=== PATIENT | female | born 1975 | race Caucasian/White ===

== ENCOUNTER 2016-06-06 11:46 | Emergency (ER) | payer OTHER ==
[~2016-06-06] VITALS: Ht 167.6 cm; Wt 65.0 kg
[2016-06-06 11:57] VITALS: Ht 167.6 cm; Wt 65.0 kg
[2016-06-06] MEDS ORDERED: DIPHENHYDRAMINE 50 MG INJ IV STA (12:21)
[2016-06-06] MEDS ORDERED: METOCLOPRAMIDE 10 MG INJ IV STA (12:21)
[2016-06-06] MEDS ORDERED: HYDROmorphONE 1 MG/ML SYG IV STA ×2 (12:21→16:04)
[2016-06-06] MEDS ORDERED: SOD CHLORIDE 0.9% 1,000 ML IV STA (12:21)
[2016-06-06] MEDS ORDERED: VENL37.56 PO (12:51)
[2016-06-06] MEDS ORDERED: RIZA10TA24 PO (12:52)
--- NOTE | 2016-06-06 13:33 | RADRPT ---
PROCEDURE: CT head without Contrast CLINICAL INDICATION: Headache TECHNIQUE: Transaxial images were made through the head on a multi-slice scanner without intraveno us contrast. Coronal and sagittal images were subsequently reformatted. One or more of the following dose reduction techniques were used: - Automated exposure control. - Adjustment of the mA and/or kV according to patient size. - Use of iterative reconstruction technique. Radiation dose: CTDIvol = 44.99 mGy; DLP = 720.23 mGy-cm. COMPARISON: None FINDINGS: The calvarium appears intact. There is some fluid is seen within several of the left inferior masto id air cells compatible with acute mastoiditis. There is loss of the trabeculation between the air cells within the right inferior mastoid region with 1 large air containing cavity. The paranasal si nuses are well-aerated. The ventricles are normal in size and there is no midline shift. No intracranial bleed, mass, or extra-axial fluid collection is identified. There is good arana-white matter differentiation. IMPRESSION: 1. Loss of trabeculation within the right inferior mastoid air cells with 1 large air containing ca vity seen inferiorly. This may been a sequelae of previous surgery or infection. There is mild acu te left mastoiditis. 2. Otherwise, unremarkable noncontrast enhance CT scan of the head. Physician Oren Date Time Electronically viewed and signed by Physician Oren on 06/06/2016 13:32 /
[2016-06-06] MEDS ORDERED: VANCOMYCIN 1 GM (PMX) 250 ML IVPB STA (14:22)
[2016-06-06] MEDS ORDERED: CEFTRIAXONE 1 GM/50 ML (PMX) 50 ML IVPB STA (14:22)
[2016-06-06 14:58] LABS: ADD SCAN DIFF NO
[2016-06-06 15:04] LABS: BASOPHILS % 0.5 % (0.0-2.0); EOSINOPHILS % 0.7 % (0.0-7.0); HEMATOCRIT 35.9 % (37.0-47.0); HEMOGLOBIN 11.8 g/dl (12.0-16.0); LYMPHOCYTES # 1.1 10^3/ul (0.8-2.9); LYMPHOCYTES % 19.7 % (15.0-51.0); MEAN CORPUSCULAR HEMOGLOBIN 27.4 pg (29.0-33.0); MEAN CORPUSCULAR HGB CONC 32.9 g/dl (32.0-37.0); MEAN CORPUSCULAR VOLUME 83.3 fl (82.0-101.0); MEAN PLATELET VOLUME 10.6 fl (7.4-10.4); MONOCYTE # 0.3 10^3/ul (0.3-0.9); MONOCYTES % 5.1 % (0.0-11.0); NEUTROPHIL # 4.2 10^3/ul (1.6-7.5); NEUTROPHILS % 73.5 % (39.0-77.0); PLATELET COUNT 247 10^3/UL (140-415); RED BLOOD COUNT 4.31 10^6/ul (4.20-5.40); RED CELL DISTRIBUTION WIDTH 12.7 % (11.5-14.5); WHITE BLOOD COUNT 5.7 10^3/ul (4.8-10.8)
[2016-06-06 15:08] LABS: ALBUMIN 4.2 g/dl (3.3-4.9); POTASSIUM 3.8 mmol/L (3.5-5.1)
[2016-06-06 15:10] LABS: CREATININE 0.71 mg/dl (0.44-1.00)
[2016-06-06 15:11] LABS: BILIRUBIN,INDIRECT 0.3 mg/dl (0-1.1); BILIRUBIN,TOTAL 0.3 mg/dl (0.2-1.3); CALCIUM 9.4 mg/dl (8.4-10.2); TOTAL PROTEIN 7.3 g/dl (6.1-8.1)
[2016-06-06 15:15] LABS: ALBUMIN/GLOBULIN RATIO 1.35
[2016-06-06] MEDS ORDERED: ONDANSETRON 4 MG INJ IV STA (16:04)
[2016-06-06] MEDS ORDERED: ONDA4TAB14 PO (16:08)
[2016-06-06] MEDS ORDERED: AMOX1TAB10 PO (16:08)
[2016-06-06] MEDS ORDERED: HYDR-902 PO (16:08)
--- NOTE | 2016-06-06 16:13 | ERD ---
ER Documentation Chief Complaint Date/Time DATE: 06/06/16 TIME: 16:10 Chief Complaint HAS N/V AND DIZZINESS COMING FROM HOME HPI This is a 41-year-old female with a history of migraine headaches for years complains of a typical migraine headache where she has pain in the occipital region on the right side that is pounding and she has photophobia and phonophobia. She says this is exactly like prior migraines but she has nausea vomiting with this headache and she rarely has that. She has no ear pain no fever no stiff neck no neurological symptoms in the extremities no speech or visual change. She says this is exactly like prior migraine she has had for years ROS All systems reviewed and are negative except as per history of present illness. Medications Home Meds Active Scripts Ondansetron (Ondansetron Odt) 4 Mg Tab.rapdis, 4 MG PO Q6H Y for NAUSEA AND/OR VOMITING, #10 TAB Prov:JACKSON CLEMENTS DO 06/06/16 Hydrocodone/Acetaminophen (Chancellor 10-325 Tablet) 1 Each Tablet, 1 TAB PO Q6H Y for PAIN, #20 TAB Prov:JACKSON CLEMENTS DO 06/06/16 Amoxicillin/Potassium Clav (Amox-Clav 875-125 mg Tablet) 875-125 mg Tab, 1 TAB PO BID for 10 Days, #20 TAB Prov:JACKSON CLEMENTS DO 06/06/16 Reported Medications Rizatriptan Benzoate (Rizatriptan Benzoate) 10 Mg Tab.rapdis, 10 MG PO DAILY Y for MIGRAINE, TAB may repeat after 2 hours, MAX 30 mg/24 hour 06/06/16 Venlafaxine Hcl* (Effexor*) 37.5 Mg Tablet, 37.5 MG PO DAILY, TAB 06/06/16 Allergies Allergies: Coded Allergies: omeprazole (Verified Allergy, Mild, RASH, 06/06/16) PMhx/Soc Medical and Surgical Hx: pt denies Surgical Hx Hx Alcohol Use: No Hx Substance Use: No Hx Tobacco Use: No Smoking Status: Never smoker FmHx Family History: No coronary disease Physical Exam Vitals Vital Signs Date Time Temp Pulse Resp B/P Pulse Ox O2 Delivery O2 Flow Rate FiO2 06/06/16 12:50 81 18 127/90 99 Room Air 06/06/16 11:57 98.2 88 18 110/78 98 Physical Exam Const: Well-developed, well-nourished Head: Atraumatic, normocephalic Eyes: Normal Conjunctiva, PERRLA, EOMI, normal sclera, no nystagmus bilateral TMs are clear, no mastoid tenderness or erythema ENT: Normal External Ears, Nose and Mouth, moist mucus membranes. Neck: Full range of motion. No meningismus, no lymphadenopathy. Resp: Clear to auscultation bilaterally, no wheezing, rhonchi, rales Cardio: Regular rate and rhythm, no murmurs, S1 S2 present Abd: Soft, non tender x 4, non distended. Normal bowel sounds, no guarding or rebound, no pulsitile abdominal masses or bruits Skin: No petechiae or rashes, no ecchymosis , no maculopapular rash Back: No midline or flank tenderness Ext: No cyanosis, or edema, FROM x 4, normal inspection, neurovascularly intact x 4 Neur: Awake and alert, STR 5/5 x 4, sensation intact x 4, no focal findings, cerebellum intact Psych: Normal Mood and Affect Result Diagram: 06/06/16 1440 06/06/16 1440 Results 24 hrs Laboratory Tests Test 06/06/16 14:40 Alanine Aminotransferase (ALT/SGPT) 26IU/L Albumin 4.2g/dl Albumin/Globulin Ratio 1.35 Alkaline Phosphatase 64IU/L Anion Gap 16 Aspartate Amino Transf (AST/SGOT) 20IU/L Basophils # 0.010^3/ul Basophils % 0.5% Blood Urea Nitrogen 12mg/dl Calcium Level 9.4mg/dl Carbon Dioxide Level 26mmol/L Chloride Level 104mmol/L Creatinine 0.71mg/dl Direct Bilirubin 0.00mg/dl Eosinophils # 0.010^3/ul Eosinophils % 0.7% Globulin 3.10g/dl Glucose Level 81mg/dl Hematocrit 35.9% Hemoglobin 11.8g/dl Indirect Bilirubin 0.3mg/dl Lymphocytes # 1.110^3/ul Lymphocytes % 19.7% Mean Corpuscular Hemoglobin 27.4pg Mean Corpuscular Hemoglobin Concent 32.9g/dl Mean Corpuscular Volume 83.3fl Mean Platelet Volume 10.6fl Monocytes # 0.310^3/ul Monocytes % 5.1% Neutrophils # 4.210^3/ul Neutrophils % 73.5% Nucleated Red Blood Cells # 0.010^3/ul Nucleated Red Blood Cells % 0.0/100WBC Platelet Count 97168^3/UL Potassium Level 3.8mmol/L Red Blood Count 4.3110^6/ul Red Cell Distribution Width 12.7% Sodium Level 142mmol/L Total Bilirubin 0.3mg/dl Total Protein 7.3g/dl White Blood Count 5.710^3/ul Current Medications Medications (Trade) Dose Ordered Sig/Yonny Route PRN Reason Start Time Stop Time Status Last Admin Dose Admin Sodium Chloride (NS) 1,000 ml @ 1,000 mls/hr Q1H STAT IV 06/06/16 12:21 06/06/16 13:20 DC 06/06/16 12:43 Metoclopramide HCl (Reglan) 10 mg ONCE STAT IV 06/06/16 12:21 06/06/16 12:22 DC 06/06/16 12:42 Hydromorphone HCl (Dilaudid) 1 mg ONCE STAT IV 06/06/16 12:21 06/06/16 12:23 DC 06/06/16 12:43 Diphenhydramine HCl 25 mg 25 mg ONCE STAT IV 06/06/16 12:21 06/06/16 12:23 DC 06/06/16 12:42 Ceftriaxone Sodium 50 ml @ 100 mls/hr ONCE STAT IVPB 06/06/16 14:22 06/06/16 14:51 DC 06/06/16 14:45 Vancomycin HCl (Vancocin) 250 ml @ 125 mls/hr ONCE STAT IVPB 06/06/16 14:22 06/06/16 16:21 06/06/16 15:39 Hydromorphone HCl (Dilaudid) 1 mg ONCE STAT IV 06/06/16 16:04 06/06/16 16:05 DC Ondansetron HCl (Zofran Inj) 4 mg ONCE STAT IV 06/06/16 16:04 06/06/16 16:05 DC Procedures/MDM PROCEDURE: CT head without Contrast CLINICAL INDICATION: Headache TECHNIQUE: Transaxial images were made through the head on a multi-slice scanner without intravenous contrast. Coronal and sagittal images were subsequently reformatted. One or more of the following dose reduction techniques were used: - Automated exposure control. - Adjustment of the mA and/or kV according to patient size. - Use of iterative reconstruction technique. Radiation dose: CTDIvol = 44.99 mGy; DLP = 720.23 mGy-cm. COMPARISON: None FINDINGS: The calvarium appears intact. There is some fluid is seen within several of the left inferior mastoid air cells compatible with acute mastoiditis. There is loss of the trabeculation between the air cells within the right inferior mastoid region with 1 large air containing cavity. The paranasal sinuses are well-aerated. The ventricles are normal in size and there is no midline shift. No intracranial bleed, mass, or extra-axial fluid collection is identified. There is good arana-white matter differentiation. IMPRESSION: 1. Loss of trabeculation within the right inferior mastoid air cells with 1 large air containing cavity seen inferiorly. This may been a sequelae of previous surgery or infection. There is mild acute left mastoiditis. 2. Otherwise, unremarkable noncontrast enhance CT scan of the head. Physician Oren Date Time Electronically viewed and signed by Physician Oren on 06/06/2016 13:32 RH/ CC: JACKSON CLEMENTS DO Patient has no evidence of osteitis on CT scan. There is no evidence of erythema or tenderness of the mastoids. She says this is a typical migraine for her and we may just be picking up some early mastoiditis with that is been asymptomatic to this point. She did receive IV antibiotics here and her white blood count is normal. We will discharge her home on Augmentin and follow-up with ENT. She was given strict signs and symptoms for which to return Departure Diagnosis: Primary Impression: Mastoiditis of left side Additional Impression: Migraine headache Migraine type: unspecified Status migrainosus presence: without status migrainosus Intractability: not intractable Qualified Code: G43.909 - Migraine without status migrainosus, not intractable, unspecified migraine type Condition: Stable Patient Instructions: When Your Child Has Mastoiditis, Headache, Migraine ( Classical) Referrals: EFREN DUBOIS MD, APOSTOLOS A. DO Jun 06, 2016 16:13
[2016-06-06] MEDS ORDERED: ONDANSETRON (ODT) 4 MG TAB ODT STA (17:55)
[2016-06-06 18:00] VITALS: BP 94/54; PULSE 81; RESP 20
== END 2016-06-06 18:00 | disposition home or self-care (01) ==
LOC: E/R 11:46
DX: H70.92 Unspecified mastoiditis, left ear (principal); G43.909 Migraine, unspecified, not intractable, without status migrainosus; R11.2 Nausea with vomiting, unspecified
CPT/HCPCS: 70450; 80053; 85025; 87040; J0696; J1170; J1200; J2405; J2765; J3370; J7030; Z7610; 96374; 96375; 96376